=== PATIENT | female | born 1970 | race Caucasian/White ===

== ENCOUNTER 2019-12-07 06:09 | Emergency (ER) | payer OTHER, MEDICAID ==
[~2019-12-07] VITALS: Ht 160 cm; Wt 59.0 kg
[2019-12-07 06:45] VITALS: BP 133/89
[2019-12-07] MEDS ORDERED: IBUPROFEN 800 MG TAB PO ONE (07:00)
== END 2019-12-07 07:42 | disposition home or self-care (01) ==
LOC: ER 06:09 → EDBD 06:09 → ER 07:42
DX: R07.89 Other chest pain (principal); V49.9XXA Car occupant (driver) (passenger) injured in unspecified traffic accident, initial encounter; Y93.89 Activity, other specified; Y92.89 Other specified places as the place of occurrence of the external cause; Y99.8 Other external cause status
CPT/HCPCS: 71045; 71111